=== PATIENT | female | born 1990 | race Caucasian/White ===

== ENCOUNTER 2017-05-31 12:29 | Emergency (ER) | payer OTHER ==
[2017-05-31 12:44] VITALS: BP 109/70; PULSE 82; RESP 18; TEMP 97
--- NOTE | 2017-05-31 13:32 | XR ---
EXAMINATION TYPE: XR thoracic spine complete DATE OF EXAM: 05/31/2017 COMPARISON: NONE HISTORY: Pain Alignment is anatomic. There is no compression deformities. Vertebral body height and disc interspa bree are maintained. Curvature of the spine noted. IMPRESSION: 1. No acute abnormality.
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
== END 2017-05-31 14:10 | disposition home or self-care (01) ==
LOC: EC 12:29
DX: S46.812A Strain of other muscles, fascia and tendons at shoulder and upper arm level, left arm, initial encounter (principal); R40.2412 Glasgow coma scale score 13-15, at arrival to emergency department; F17.200 Nicotine dependence, unspecified, uncomplicated; V43.52XA Car driver injured in collision with other type car in traffic accident, initial encounter; Y92.410 Unspecified street and highway as the place of occurrence of the external cause
CPT/HCPCS: 72050; 72072; 99284